=== PATIENT | female | born 1995 | race Caucasian/White ===

== ENCOUNTER 2017-05-02 21:14 | Emergency (ER) | payer BC ==
[~2017-05-02] VITALS: Ht 157.5 cm; Wt 65.0 kg
[2017-05-02 21:17] VITALS: BP 113/65; PULSE 69; TEMP 98.4
== END 2017-05-02 22:52 | disposition home or self-care (01) ==
LOC: COL.ER 21:14
DX: S61.310A Laceration without foreign body of right index finger with damage to nail, initial encounter (principal); W26.0XXA Contact with knife, initial encounter

== ENCOUNTER 2017-05-16 18:11 | Emergency (ER) | payer BC ==
[2017-05-16 18:14] VITALS: BP 115/59; PULSE 68; TEMP 99.5
== END 2017-05-16 18:24 | disposition home or self-care (01) ==
LOC: COL.ER 18:11
DX: S61.210D Laceration without foreign body of right index finger without damage to nail, subsequent encounter (principal); X58.XXXD Exposure to other specified factors, subsequent encounter